=== PATIENT | male | born 1975 | race Caucasian/White ===

== ENCOUNTER 2020-12-20 12:49 | Emergency (ER) | payer OTHER ==
[~2020-12-20] VITALS: Ht 175.3 cm; Wt 88.6 kg
[2020-12-20 13:14] VITALS: BP_SYST 110
== END 2020-12-20 14:29 ==
LOC: ER 12:49
DX: F10.129 Alcohol abuse with intoxication, unspecified (principal); R07.89 Other chest pain; Y90.9 Presence of alcohol in blood, level not specified
CPT/HCPCS: 93005; 99283